=== PATIENT | female | born 1965 | race Caucasian/White ===

== ENCOUNTER 2016-10-24 13:09 | Inpatient (IN) | payer OTHER ==
[~2016-10-24] VITALS: Ht 177.8 cm; Wt 81.3 kg
--- NOTE | ~2016-10-24 | EKG ---
[place], [place] ELECTROCARDIOGRAM REPORT NAME: JOSIANE MOROCHO UNIT #: [id number] ROOM: 420 DOCTOR: MONICA CANTU MD BIRTHDATE: [birth year] DOS: 10/24/2016 TIME: 1405. FINDINGS: Normal sinus rhythm, normal EKG. MONICA CANTU MD CM:EKGRPT:ELECTROCARDIOGRAM REPORT [phone] MONICA CANTU MD
[2016-10-24 13:21] VITALS: BP 123/84
[2016-10-24] MEDS ORDERED: SYNTHROID0.137 MG PO (13:22)
[2016-10-24] MEDS ORDERED: PROZAC40 M1 PO (13:23)
[2016-10-24] MEDS ORDERED: PRENATAL1 TA3 PO (13:23)
[2016-10-24] MEDS ORDERED: VITAMIN D50000 UNIT PO (13:23)
[2016-10-24] MEDS ORDERED: VITAMIN B11000 MCG/M IM (13:24)
[2016-10-24] MEDS ORDERED: ZOFRAN4 MG PO (13:24)
[2016-10-24] MEDS ORDERED: VIVITROL380 MG IM (13:26)
[2016-10-24] MEDS ORDERED: ESTRADIOL1 EAC5 TD (13:26)
[2016-10-24] MEDS ORDERED: HYDROXYZINE PAM50 MG PO (13:27)
[2016-10-24 14:22] LABS: ALBUMIN 3.5 gm/dl (3.1-4.5); ALKALINE PHOSPHATASE 102 U/L (45-117); BILIRUBIN, TOTAL 0.3 mg/dl (0.2-1.0); BUN 9 mg/dl (7-24); CARBON DIOXIDE 26 mmol/L (21-32); CHLORIDE 100 mmol/L (98-107); EST GLOM FILT AFRICAN AMERICAN > 60 ml/min; GLUCOSE 93 mg/dL (65-99); SGOT/AST 56 IU/L (3-35); SGPT/ALT 43 U/L (12-78); SODIUM 139 mmol/L (136-145); TOTAL PROTEIN 7.1 gm/dL (6.4-8.2)
[2016-10-24 14:23] LABS: BASO % 0.6 % (0.0-1.0); EOS % 0.5 % (1.0-4.0); HEMATOCRIT 41.6 % (37.0-47.0); HEMOGLOBIN 14.3 g/dl (12.0-16.0); LYMPH % 32.5 % (27.0-41.0); MEAN CELL VOLUME 91.6 fl (81.0-99.0); MEAN CORPUSCULAR HGB 31.5 pg (27.0-31.0); MEAN CORPUSCULAR HGB CONC 34.4 g/dl (33.0-37.0); MEAN PLATELET VOLUME 9.5 fl (9.6-12.3); MONO # 0.2 10*3/uL (0.1-1.0); MONO % 3.8 % (3.0-9.0); NEUT # 3.9 10*3/uL (2.3-7.9); NEUT % 62.3 % (47.0-73.0); PLATELET COUNT AUTOMATED 270 10*3/uL (130-400); RED BLOOD COUNT 4.54 10*6/uL (4.10-5.10); RED CELL DISTRI WIDTH 15.1 % (0-14.5); WHITE BLOOD COUNT 6.3 10*3/uL (4.8-10.8)
[2016-10-24 15:37] VITALS: BP 125/80
[2016-10-24 16:00] VITALS: BP 131/87
[2016-10-24 16:23] LABS: BILIRUBIN NEGATIVE (NEGATIVE); BLOOD NEGATIVE (NEGATIVE); CLARITY SL CLOUDY (CLEAR); COLOR YELLOW (YELLOW); GLUCOSE NEGATIVE (NEGATIVE); KETONE NEGATIVE (NEGATIVE); LEUKO ESTERASE NEGATIVE (NEGATIVE); NITRITE NEGATIVE (NEGATIVE); PROTEIN NEGATIVE (NEGATIVE); UROBILINOGEN 0.2 E.U./dl (0.2-1.0)
[2016-10-24 16:24] LABS: URINE AMPHETAMINES < 1000 (1000ng/ml); URINE BARBITURATES < 200 (200ng/ml); URINE COCAINE < 300 (300ng/ml)
[2016-10-24 16:29] LABS: BACTERIA 2+; RBC 0-2 rbc/hpf (0-2); URINE REFLEX COMMENT YES (NO); WBC 0-2 wbc/hpf (0-5)
[2016-10-24] MEDS ORDERED: LASIX20 MG PO (16:58)
[2016-10-24] MEDS ORDERED: KLOR-CON 1010 ME1 PO (16:59)
[2016-10-24] MEDS ORDERED: MIRTAZAPINE30 M2 PO (17:02)
[2016-10-24] MEDS ORDERED: NALTREXONE50 MG PO (17:04)
[2016-10-24] MEDS ORDERED: VITAMIN D1000 IU PO (17:06)
[2016-10-24 20:00] VITALS: BP 107/61
[2016-10-25] VITALS: BP 118/79
[2016-10-25 04:00] VITALS: BP 142/91
[2016-10-25 08:00] VITALS: BP 131/84
[2016-10-25 12:00] VITALS: BP 126/84
[2016-10-25 16:12] VITALS: BP 126/73
[2016-10-25 20:00] VITALS: BP 137/79
[2016-10-26 08:00] VITALS: BP 109/66
[2016-10-26] MEDS ORDERED: Oscal,Oyster S500 MG PO (10:19)
[2016-10-26 12:00] VITALS: BP 120/87
== END 2016-10-26 13:00 | DRG 897 ==
LOC: ED 13:09 → EDHOLD 14:46 → ICCU 14:46 → EDHOLD 15:12 → ICCU 15:21 → 4E 10-25 11:39
PROVIDERS: Nurse Practitioner Family
DX: F10.129 Alcohol abuse with intoxication, unspecified (principal); E83.51 Hypocalcemia; E53.8 Deficiency of other specified B group vitamins; E03.9 Hypothyroidism, unspecified; F17.210 Nicotine dependence, cigarettes, uncomplicated; Z83.3 Family history of diabetes mellitus; Z80.42 Family history of malignant neoplasm of prostate; Z88.6 Allergy status to analgesic agent; Z88.5 Allergy status to narcotic agent; Z71.6 Tobacco abuse counseling; E55.9 Vitamin D deficiency, unspecified